=== PATIENT | male | born 1965 | race Caucasian/White ===

== ENCOUNTER 2017-02-08 12:31 | Emergency (ER) | payer BC ==
[2017-02-08 12:44] VITALS: BP 152/89
--- NOTE | 2017-02-08 13:19 | RAD ---
INDICATION: Left-sided rib pain. TECHNIQUE: 5 views of the left ribs and a PA view of the chest were obtained. FINDINGS: No fracture or significant focal osseous abnormality is seen. The heart is within normal limits in size. The lungs are clear. There is no evidence for pneumothorax or pleural effusion. IMPRESSION: NO EVIDENCE FOR FRACTURE.
[2017-02-08] MEDS ORDERED: Ketorolac INJ* 60 MG/2 ML VIAL IM ONE (13:22)
--- NOTE | 2017-02-08 13:46 | UC ---
madison Vale Timothy, scribed for Edi Heard MD on 02/08/17 at 1322 . Truncal Trauma HPI - HPI Summary HPI Summary: Nas Hobson is a 51 yo male presenting to [facility] with 9/10 left upper rib pain since 02/05/17. He states he was trying to change a quileute and feels like he broke a rib or scraped cartilage off the bone. His MHx includes laminectomy, claustrophobia. - History Of Current Complaint Chief Complaint: UCTrauma Stated Complaint: RIB INJURY Time Seen by Provider: 02/08/17 12:45 - Allergies/Home Medications Allergies/Adverse Reactions: Allergies Allergy/AdvReac Type Severity Reaction Status Date / Time No Known Allergies Allergy Verified 07/25/16 17:51 PMH/Surg Hx/FS Hx/Imm Hx Endocrine History Of: Denies: Diabetes, Thyroid Disease, Hyperthyroidism, Hypothyroidism, Dyslipidemia Cardiovascular History Of: Denies: Cardiac Disorders, Hypertension, Pacemaker/ICD Respiratory History Of: Denies: COPD, Asthma GI/ History Of: Denies: Gastroesophageal Reflux, Ulcer, Gastrointestinal Bleed, Gall Bladder Disease, Kidney Stones, Diverticulitis, Renal Disease, Urosepsis Neurological History Of: Denies: TIA, CVA, Dementia, Seizures, Migraine Psychological History Of: Denies: Anxiety, Depression, Bipolar Disorder, Schizophrenia, Post Traumatic Stress Disorder Cancer History Of: Denies: Lung Cancer, Colorectal Cancer, Breast Cancer, Prostate Cancer, Cervical Cancer Other History Of: Negative For: HIV, Hepatitis B, Hepatitis C - Surgical History Surgical History: Yes Surgery Procedure, Year, and Place: LAMINECTOMY L5 2010 - Family History Known Family History: Positive: Other - psoriasis Negative: Cardiac Disease, Hypertension, Diabetes Family History: family history negative for HTN, DM, CAD osteoporosis - Social History Alcohol Use: None Substance Use Type: None Smoking Status (MU): Never Smoked Tobacco - Immunization History Most Recent Tetanus Shot: 4 yrs ago Review of Systems Constitutional: Negative Skin: Negative Eyes: Negative ENT: Negative Respiratory: Negative Cardiovascular: Negative Gastrointestinal: Negative Genitourinary: Negative Motor: Negative Neurovascular: Negative Musculoskeletal: Other: - left upper rib pain Neurological: Negative Psychological: Negative All Other Systems Reviewed And Are Negative: Yes Physical Exam Triage Information Reviewed: Yes Vital Signs: Initial Vital Signs Temp 98.5 F 02/08/17 12:40 Pulse 66 02/08/17 12:40 Resp 16 02/08/17 12:40 BP 152/89 02/08/17 12:40 Pulse Ox 100 02/08/17 12:40 Vital Signs Reviewed: Yes - Additional Comments VITAL SIGNS: Reviewed. GENERAL: Patient is a well developed and nourished who is lying comfortable in the stretcher. Patient is not in any acute respiratory distress. HEAD AND FACE: Normocephalic EYES: PERRLA, EOMI x 2. EARS: Hearing grossly intact. MOUTH: Oropharynx within normal limits. NECK: Supple, trachea is midline, no adenopathy, no JVD, no carotid bruit. CHEST: Symmetric, tender to palpation in the area of the 4th and 5th rib midclavicular left side. LUNGS: Clear to auscultation bilaterally. No wheezing or crackles. CVS: Regular rate and rhythm, S1 and S2 present, no murmurs or gallops appreciated. ABDOMEN: Soft, non-tender. Bowel sounds are normal. No abdominal abnormal pulsations. EXTREMITIES: FROM in all major joints, no edema, no cyanosis or clubbing. NEURO: Alert and oriented x 3. No acute neurological deficits. Speech is normal and follows commands. SKIN: Dry and warm Diagnostics - Radiology CXR Xray Interpretation: No Acute Changes - IMPRESSION: NO EVIDENCE FOR FRACTURE. Radiology Interpretation Completed By: Radiologist Re-Evaluation - Re-Evaluation First Eval Re-Evaluation Time: 13:22 Change: Unchanged Comment: Pt is informed of results of imaging study. Truncal Trauma Course/Dx - Course Course Of Treatment: Nas Hobson is a 51 yo male presenting to [facility] with 9 /10 left upper rib pain since 02/05/17. He states he was trying to change a quileute and feels like he broke a rib or scraped cartilage off the bone. His MHx includes laminectomy, claustrophobia. CXR suggests no evidence for fracture. In the UC he was given Toradol for the pain. I discussed all the findings and test results with the patient. Patient was instructed to return to the emergency room immediately if any of the symptoms return or worsens. Plan of care was discussed with the patient and understands and agrees. All questions were answered at patient satisfaction. There were no further complaints or concerns. Lung exam before discharge: CTA B/L. Good air exchange. No wheezing or crackles heard. CVS: S1 and S2 present. No murmurs appreciated. Patient is alert and oriented x 3. Patient is hemodynamically stable. 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 Return to urgent care or the emergency department with any new or recurring symptoms. The documentation as recorded by the madison hewitt Timothy accurately reflects the service I personally performed and the decisions made by , Edi Heard MD.
== END 2017-02-08 13:45 | disposition home or self-care (01) ==
LOC: UCEAST 12:31
DX: S20.212A Contusion of left front wall of thorax, initial encounter (principal); X58.XXXA Exposure to other specified factors, initial encounter; Y93.89 Activity, other specified; Y92.9 Unspecified place or not applicable
CPT/HCPCS: 96372; 99212; G0463; J1885

== ENCOUNTER 2017-04-24 15:41 | Emergency (ER) | payer BC ==
[2017-04-24 15:54] VITALS: BP 146/89
--- NOTE | 2017-04-24 17:08 | UC ---
Skin Complaint HPI - HPI Summary HPI Summary: The patient comes in today for: 1. Skin lesion: Onset: 1 month ago. Palliative/provocative: Touching it makes it more sore. Quality: Dull pain Region: Right forearm. Severity: 2/10 Time: Constant. Associated symptoms: Treatment: None. Previous skin diseases: None Event: None remembered. Course: Initially, there was a flesh-colored "crack" "fissured" lesion with "No opening." Then slowly it turned red. The tenderness developed after it turned red. * - History of Current Complaint Chief Complaint: UCSkin Time Seen by Provider: 04/24/17 16:59 Stated Complaint: SKIN COMPLAINT ARM,PAIN IN AREA Hx Obtained From: Patient - Allergy/Home Medications Allergies/Adverse Reactions: Allergies Allergy/AdvReac Type Severity Reaction Status Date / Time No Known Allergies Allergy Verified 04/24/17 17:21 Home Medications: Home Medications oxyCODONE/Acetamin 5/325 MG* [Percocet 5/325 TAB*] 04/24/17 [History Confirmed 04/24/17] Review of Systems Constitutional: Negative Skin: Rash Eyes: Negative ENT: Negative Respiratory: Negative Cardiovascular: Negative Gastrointestinal: Negative Genitourinary: Negative Motor: Negative All Other Systems Reviewed And Are Negative: Yes PMH/Surg Hx/FS Hx/Imm Hx Previously Healthy: No - Chronic low back pain. Other History Of: Negative For: HIV, Hepatitis B, Hepatitis C - Surgical History Surgical History: Yes Surgery Procedure, Year, and Place: LAMINECTOMY L5 2011 - Family History Known Family History: Positive: None, Unknown, Other - psoriasis Negative: Cardiac Disease, Hypertension, Diabetes Family History: family history negative for HTN, DM, CAD osteoporosis - Social History Occupation: Employed Full-time Alcohol Use: None Substance Use Type: None Smoking Status (MU): Never Smoked Tobacco - Immunization History Most Recent Tetanus Shot: 4 yrs ago Physical Exam Triage Information Reviewed: Yes Appearance: Well-Appearing, No Pain Distress, Well-Nourished Vital Signs: Initial Vital Signs Temp 98.5 F 04/24/17 15:53 Pulse 76 04/24/17 15:53 Resp 16 04/24/17 15:53 BP 146/89 04/24/17 15:53 Pulse Ox 97 04/24/17 15:53 Vital Signs Reviewed: Yes Eyes: Positive: Conjunctiva Clear. Negative: Discharge ENT: Positive: Hearing grossly normal. Negative: Pharyngeal erythema, Nasal congestion, Nasal drainage, TM bulging, TM dull, TM red, Tonsillar swelling, Tonsillar exudate Dental: Negative: Gross Decay/Caries @, Dental Fracture @ Neck: Positive: Supple, Nontender, No Lymphadenopathy. Negative: Nuchal Rigidity Respiratory: Positive: Lungs clear, No respiratory distress, No accessory muscle use. Negative: Crackles, Wheezing Cardiovascular: Positive: RRR, No Murmur Abdomen Description: Positive: Nontender, No Organomegaly, Soft. Negative: Distended, Guarding Musculoskeletal: Positive: Strength Intact, ROM Intact, No Edema Neurological: Positive: Alert, Muscle Tone Normal Psychological: Positive: Age Appropriate Behavior, Consolable Skin: Positive: rashes - The patient has an erythematous, slightly papular, tender and partially blanchable lesion with no abnormal vessels seen with the ophthalmascope. The border was not distinct, but the color was uniform. The diameter was about 7 mm. It was symmetrical. It was located on the right forearm. Course/Dx - Course Course Of Treatment: Patient education given. - Diagnoses Provider Diagnoses: Skin lesion. Discharge - Discharge Plan Condition: Stable Disposition: HOME Patient Education Materials: Skin Cancer Prevention (ED) Referrals: Rudolph Chowdary MD [Primary Care Provider] - Rachna Edwards [Medical Doctor] - 1 Week (Apply the triamcinolone ointment as directed for no more than 2 weeks for the skin lesion. If the lesion has not resolved, please contact the floral decorator (Dr. Edwards) office for an appointment. ) Additional Instructions: Please take the steroid ointment as directed. In 1-2 weeks, if the lesions has not resolved (tenderness, redness), please contact one of the local dermatologists for evaluation.
== END 2017-04-24 17:30 | disposition home or self-care (01) ==
LOC: UCEAST 15:41
DX: L98.9 Disorder of the skin and subcutaneous tissue, unspecified (principal)
CPT/HCPCS: 99212; G0463

== ENCOUNTER 2017-12-15 09:24 | Emergency (ER) | payer BC ==
[2017-12-15 10:10] VITALS: BP 128/82
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
== END 2017-12-15 10:33 | disposition home or self-care (01) ==
LOC: UCEAST 09:24
DX: R55 Syncope and collapse (principal)
CPT/HCPCS: 93005; 99212; G0463

== ENCOUNTER 2017-12-15 10:55 | Emergency (ER) | payer BC ==
[2017-12-15 11:59] LABS: ABS Basophils 0 10^3/ul (0-0.2); ABS Eosinophils 0.1 10^3/ul (0-0.6); ABS Lymphocytes 2.3 10^3/ul (1.0-4.8); ABS Monocytes 0.7 10^3/ul (0-0.8); ABS Neutrophils 5.2 10^3/ul (1.5-7.7); ABS Nucleated RBC 0 10^3/ul; Eosinophil % 1.4 % (0-6); Hematocrit 44 % (42-52); Hemoglobin 14.7 g/dl (14.0-18.0); Lymphocyte % 27.6 % (25-47); Mean Corpuscular HGB Conc 34 g/dl (31-36); Mean Corpuscular Hemoglobin 30 pg (27-31); Mean Corpuscular Volume 88 fL (80-94); Mean Platelet Volume 8 um3 (7.4-10.4); Nucleated Red Blood Cells % 0.1; Platelet Count 251 10^3/ul (150-450); Red Blood Count 4.95 10^6/ul (4.0-5.4); Red Cell Distribution Width 13 % (10.5-15); White Blood Count 8.4 10^3/ul (3.5-10.8)
[2017-12-15 12:10] LABS: INR 0.97 (0.77-1.02)
[2017-12-15 12:22] LABS: EGFR Non-African American 112.4 (>60)
--- NOTE | 2017-12-15 12:34 | RAD ---
HISTORY: Dizziness COMPARISONS: January 21, 2016 VIEWS: 1: frontal portable view of the chest at 12:18 PM FINDINGS: LINES AND TUBES: None. CARDIOMEDIASTINAL SILHOUETTE: The cardiomediastinal silhouette is normal for portable technique. PLEURA: The costophrenic angles are sharp. No pleural abnormalities are noted. LUNG PARENCHYMA: The lungs are clear. ABDOMEN: The upper abdomen is clear. There is no subphrenic gas. BONES AND SOFT TISSUES: No bone or soft tissue abnormalities are noted. IMPRESSION: NO ACTIVE CARDIOPULMONARY DISEASE.
--- NOTE | 2017-12-15 13:44 | RAD ---
HISTORY: Dizziness COMPARISONS: MRI of the brain dated January 05, 2009 TECHNIQUE: Multiple contiguous axial CT scans were obtained of the head without intravenous contrast. FINDINGS: HEMORRHAGE/INFARCT: There is no hemorrhage or acute infarct. MASSES/SHIFT: There is no mass or shift. EXTRA-AXIAL SPACES: There are no extra-axial fluid collections. SULCI AND VENTRICLES: The sulci and ventricles are normal in size and position for the patient's stated age. CEREBRUM: There are no focal parenchymal abnormalities. BRAINSTEM: There are no focal parenchymal abnormalities. CEREBELLUM: There are no focal parenchymal abnormalities. VESSELS: The vessels are grossly normal. PARANASAL SINUSES: The paranasal sinuses are clear. ORBITS: The orbits are unremarkable. BONES AND SOFT TISSUE: No bone or soft tissue abnormalities are noted. OTHER: None IMPRESSION: NO ACUTE INTRACRANIAL PATHOLOGY.
[2017-12-15] MEDS ORDERED: Ondansetron INJ* 2 MG/ML VIAL ONE (15:23)
--- NOTE | 2017-12-15 15:31 | ED ---
Lucius Vale Jennifer, scribed for Mahin Lowe on 12/15/17 at 1130 . Dizziness - HPI Summary HPI Summary: The patient is a 52 year old male who complains of dizziness that began last night. He was watching a movie when he saw black dots that lasted about five minutes but is now relieved in the ED. The patient is referred by urgent care and recommended to get bloodwork done. He denies chest pain, shortness of breath , fever, cough, ear pain, numbness, or weakness. He also denies a history of hypertension, diabetes, and drug use. - History Of Current Complaint Chief Complaint: EDDizziness Stated Complaint: SYNCOPE Time Seen by Provider: 12/15/17 11:11 Hx Obtained From: Patient Onset/Duration: Resolved Timing: Minutes - One episode lasted about five minutes Severity Initially: Mild Severity Currently: Mild Aggravating Factor(s): Nothing Alleviating Factor(s): Nothing Associated Signs And Symptoms: Positive: Negative - Chest pain, SOB, fever, cough, ear pain, numbness, weakness - Allergies/Home Medications Allergies/Adverse Reactions: Allergies Allergy/AdvReac Type Severity Reaction Status Date / Time No Known Allergies Allergy Verified 12/15/17 09:34 PMH/Surg Hx/FS Hx/Imm Hx Endocrine/Hematology History: Denies: Hx Diabetes, Hx Thyroid Disease Cardiovascular History: Denies: Hx Hypertension, Hx Pacemaker/ICD Respiratory History: Denies: Hx Asthma, Hx Chronic Obstructive Pulmonary Disease (COPD), Hx Lung Cancer GI History: Denies: Hx Gall Bladder Disease, Hx Gastrointestinal Bleed, Hx Ulcer, Hx Urosepsis History: Denies: Hx Kidney Stones, Hx Renal Disease Neurological History: Denies: Hx Dementia, Hx Migraine, Hx Seizures, Hx Transient Ischemic Attacks (TIA) Psychiatric History: Denies: Hx Anxiety, Hx Depression, Hx Schizophrenia, Hx Bipolar Disorder - Surgical History Surgery Procedure, Year, and Place: LAMINECTOMY L5 2010 Infectious Disease History: No Infectious Disease History: Denies: Hx Hepatitis, Hx Human Immunodeficiency Virus (HIV), Traveled Outside the [place] in Last 30 Days - Family History Known Family History: Positive: Other - psoriasis Negative: Cardiac Disease, Hypertension, Diabetes Family History: family history negative for HTN, DM, CAD osteoporosis - Social History Alcohol Use: Rare Substance Use Type: Reports: None Smoking Status (MU): Never Smoked Tobacco Review of Systems Negative: Fever Negative: Ear Ache Negative: Chest Pain Negative: Shortness Of Breath, Cough Neurological: Other - Dizziness Negative: Weakness, Numbness All Other Systems Reviewed And Are Negative: Yes Physical Exam - Summary Physical Exam Summary: Appearance: Well appearing, no pain distress Skin: warm, dry, reflects adequate perfusion Head/face: normal Eyes: EOMI, HUMBERTO ENT: normal Neck: supple, non-tender Respiratory: CTA, breath sounds present Cardiovascular: RRR, pulses symmetrical Abdomen: non-tender, soft Bowel: present Musculoskeletal: normal, strength/ROM intact Neuro: normal, sensory motor intact, A&Ox3 Triage Information Reviewed: Yes Vital Signs On Initial Exam: Initial Vitals Temp Pulse Resp BP Pulse Ox 97.7 F 64 16 149/95 99 12/15/17 10:56 12/15/17 10:56 12/15/17 10:56 12/15/17 10:56 12/15/17 10:56 Vital Signs Reviewed: Yes Diagnostics - Vital Signs Vital Signs Temp Pulse Resp BP Pulse Ox 12/15/17 10:56 97.7 F 64 16 149/95 99 - Laboratory Result Diagrams: 12/15/17 11:36 12/15/17 11:36 Lab Statement: Any lab studies that have been ordered have been reviewed, and results considered in the medical decision making process. - Radiology CXR Xray Interpretation: No Acute Changes - NO ACTIVE CARDIOPULMONARY DISEASE. Dr. Lowe has reviewed this report. Radiology Interpretation Completed By: Radiologist - CT Brain CT CT Interpretation: No Acute Changes - NO ACUTE INTRACRANIAL PATHOLOGY. Dr. Lowe has reviewed this report. CT Interpretation Completed By: Radiologist - EKG 11:27 Cardiac Rate: Bradycardia EKG Rhythm: Sinus Bradycardia - [address] Segment: Non-Specific - ST T wave changes Dizzy Course/Dx - Course Assessment/Plan: The patient is a 52 year old male who was referred by Urgent Care to the ED for bloodwork after one episode of dizziness that last five minutes last night. Bloodwork, EKG, CXR, and CT Brain were obtained. Patient will be discharged home with primary care follow up. Patient is diagnosed with dizziness. - Diagnoses Provider Diagnoses: Dizziness - Provider Notifications Discussed Care Of Patient With: Nas Ochoa Time Discussed With Above Provider: 11:57 Instructed by Provider To: Other - Dr. Ochoa, cardiology, says to rule the patient out for outpatient follow up. Discharge - Discharge Plan Condition: Stable Disposition: HOME Patient Education Materials: Dizziness (ED) Referrals: [facility]ERR[facility] [Outside] Additional Instructions: Follow up with your primary care physician in three days. If you do not have one , you can use the [facility] Phys[place] referral service to find one and make an appointment. Return to the emergency department for any new or worsening symptoms . The documentation as recorded by the Lucius hewitt Jennifer accurately reflects the service I personally performed and the decisions made by me, Mahin Lowe.
[2017-12-15 16:08] VITALS: BP 00/00
== END 2017-12-15 16:09 | disposition home or self-care (01) ==
LOC: ED 10:55
DX: R42 Dizziness and giddiness (principal)
CPT/HCPCS: 36415; 70450; 71045; 80053; 84443; 84484; 85025; 85610; 85730; 93005; 99283; J2405

== ENCOUNTER 2019-04-18 15:45 | Emergency (ER) | payer BC ==
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
[2019-04-18 18:44] VITALS: BP 119/80
== END 2019-04-18 18:59 | disposition home or self-care (01) ==
LOC: UCEAST 15:45
DX: D17.22 Benign lipomatous neoplasm of skin and subcutaneous tissue of left arm (principal)
CPT/HCPCS: 99211; G0463